=== PATIENT | female | born 1935 | race African-American/Black ===

== ENCOUNTER 2017-07-29 06:15 | Emergency (ER) | payer MEDICARE, OTHER ==
[~2017-07-29] VITALS: Ht 157.5 cm; Wt 59.0 kg
[2017-07-29] MEDS ORDERED: TRAMADOL 50MG TABLET PO ONE (06:45)
[2017-07-29] MEDS ORDERED: ACETAMINOPHEN 500MG TABLET PO ONE (06:45)
[2017-07-29 07:19] LABS: BASOPHILS % 0.4 % (0.0-2.0); EOSINOPHILS % 0.6 % (0.0-5.0); HEMATOCRIT. 29.3 % (36.0-48.0); HEMOGLOBIN. 10.1 g/dL (12.0-16.0); LYMPHOCYTES % 9.9 % (20.0-50.0); MEAN CORPUSCULAR HEMOGLOBIN 28.9 pg (28.0-32.0); MEAN CORPUSCULAR VOLUME 83.3 fL (81.0-99.0); MONOCYTES % 9.6 % (2.0-8.0); NEUTROPHILS % 79.5 % (40.0-76.0); PLATELET 285 x1000/uL (130-400); RED BLOOD CELL COUNT 3.52 mill/uL (4.2-5.4); RED CELL DISTRIBUTION WIDTH 17.3 % (11.6-14.6)
[2017-07-29 07:29] LABS: PROTHROMBIN TIME 49.7 sec (9.4-11.6)
[2017-07-29 07:36] LABS: INR 4.8
[2017-07-29 09:16] VITALS: BP 145/79
== END 2017-07-29 09:20 | disposition home or self-care (01) ==
LOC: ER 07:18
DX: M13.811 Other specified arthritis, right shoulder (principal); I50.9 Heart failure, unspecified; E78.00 Pure hypercholesterolemia, unspecified; I10 Essential (primary) hypertension; Z91.041 Radiographic dye allergy status; Z95.2 Presence of prosthetic heart valve
CPT/HCPCS: 36415; 71045; 73030; 83880; 85025; 85610; 93005; 99285

== ENCOUNTER 2020-02-21 12:42 | Inpatient (IN) | payer MEDICARE, OTHER ==
[~2020-02-21] VITALS: Ht 157.5 cm; Wt 51.3 kg
[2020-02-21] MEDS ORDERED: ONDANSETRON HCL 4MG/2ML INJ IV STA (13:57)
[2020-02-21] MEDS ORDERED: MORPHINE SULFATE 4 MG/ML CPJ (NOT FOR IM USE) IV STA (13:57)
[2020-02-21] MEDS ORDERED: SODIUM CHLORIDE 0.9% 1,000 ML IV ONE (14:00)
[2020-02-21 14:32] LABS: HEMATOCRIT. 31.3 % (36.0-48.0); HEMOGLOBIN. 10.5 g/dL (12.0-16.0); MEAN CORPUSCULAR HEMOGLOBIN 28.7 pg (28.0-32.0); MEAN CORPUSCULAR VOLUME 85.5 fL (81.0-99.0); MEAN PLATELET VOLUME 8.2 fl (7.4-10.4); PLATELET 357 x1000/uL (130-400); RED BLOOD CELL COUNT 3.66 mill/uL (4.2-5.4); RED CELL DISTRIBUTION WIDTH 15.5 % (11.6-14.6)
[2020-02-21 14:40] LABS: CHLORIDE 102 mEq/L (98-107)
[2020-02-21 15:32] LABS: PLATELET ESTIMATE NORMAL
[2020-02-21] MEDS ORDERED: ASPIRIN 325MG EC TABLET PO ONE (16:00)
[2020-02-21 16:50] LABS: INR 2.2; PARTIAL THROMBOPLASTIN TIME 34.5 sec (23.4-31.0); PROTHROMBIN TIME 22.6 sec (9.6-11.0)
[2020-02-21] MEDS ORDERED: ENOXAPARIN 40MG/0.4ML SYR SUBCUT SCH (18:15)
[2020-02-21] MEDS ORDERED: ACETAMINOPHEN 650MG SUPP PR PRN (18:15)
[2020-02-21] MEDS ORDERED: ONDANSETRON HCL 4MG/2ML INJ IV PRN (18:15)
[2020-02-21] MEDS ORDERED: HYDROMORPHONE HCL/PF 2MG/ML CPJ IV PRN (18:15)
[2020-02-21] MEDS: DEXT 5%/0.45% NACL 1000ML 1,000 ML IV SCH (18:51)
[2020-02-22 02:18] VITALS: BP 142/67
[2020-02-22] MEDS ORDERED: LOSA25TA3 PO (03:01)
[2020-02-22] MEDS ORDERED: ATOR20TA PO (03:01)
[2020-02-22] MEDS ORDERED: WARF-53 PO (03:01)
[2020-02-22] MEDS ORDERED: COR12 PO (03:01)
[2020-02-22 08:00] VITALS: BP 129/72
[2020-02-22] MEDS ORDERED: METOPROLOL TARTRATE 25MG TABLET PO SCH (09:00)
[2020-02-22] MEDS ORDERED: CARVEDILOL 12.5MG TABLET PO SCH (09:30)
[2020-02-22 11:05] LABS: HEMATOCRIT. 27.3 % (36.0-48.0); HEMOGLOBIN. 9.4 g/dL (12.0-16.0); MEAN CORPUSCULAR HEMOGLOBIN 29.4 pg (28.0-32.0); MEAN CORPUSCULAR VOLUME 85.6 fL (81.0-99.0); MEAN PLATELET VOLUME 7.9 fl (7.4-10.4); PLATELET 336 x1000/uL (130-400); RED BLOOD CELL COUNT 3.19 mill/uL (4.2-5.4); RED CELL DISTRIBUTION WIDTH 15.7 % (11.6-14.6)
[2020-02-22] MEDS ORDERED: ENOXAPARIN 40MG/0.4ML SYR SUBCUT SCH (11:30)
[2020-02-22 11:48] LABS: CHLORIDE 102 mEq/L (98-107)
[2020-02-22 12:00] VITALS: BP 125/71
[2020-02-22 12:02] LABS: HDL CHOLESTEROL 35 mg/dL (40-59); LDL CHOLESTEROL 50 mg/dL (5-100)
[2020-02-22 16:00] LABS: PLATELET ESTIMATE NORMAL
[2020-02-22 20:00] VITALS: BP 118/58
[2020-02-22] MEDS ORDERED: FUROSEMIDE 40MG/4ML VIAL IVP NR (20:00)
[2020-02-22] MEDS ORDERED: ATORVASTATIN CALCIUM 20MG TABLET PO SCH (21:00)
[2020-02-22] MEDS: ENOXAPARIN 60MG/0.6ML SYR SUBCUT SCH (22:04)
[2020-02-22] MEDS: ATORVASTATIN CALCIUM 40MG TABLET PO SCH (22:07)
[2020-02-23] VITALS: BP 107/54
[2020-02-23] MEDS ORDERED: PREDNISONE 20MG TABLET PO ONE ×2 (02:00→08:00)
[2020-02-23] MEDS: DEXT 5%/0.45% NACL 1000ML 1,000 ML IV SCH (02:31)
[2020-02-23 04:00] VITALS: BP 124/62
[2020-02-23] MEDS: LOSARTAN POTASSIUM 25 MG TABLET PO SCH (06:19)
[2020-02-23 08:00] VITALS: BP 124/65
[2020-02-23] MEDS ORDERED: DIPHENHYDRAMINE 50MG CAPSULE PO ONE (08:00)
[2020-02-23] MEDS: CARVEDILOL 12.5MG TABLET PO SCH (09:00)
[2020-02-23] MEDS: ENOXAPARIN 60MG/0.6ML SYR SUBCUT SCH ×2 (09:00→21:08)
[2020-02-23] MEDS ORDERED: HEPARIN SODIUM 1,000 UNIT/1ML VIAL IV ONE (11:00)
[2020-02-23 11:08] LABS: INR 1.9; PROTHROMBIN TIME 19.3 sec (9.6-11.0)
[2020-02-23 12:00] VITALS: BP 121/66
[2020-02-23] MEDS ORDERED: FENTANYL CITRATE/PF 50MCG/ML 2ML VIAL ONE (12:00)
[2020-02-23] MEDS ORDERED: MIDAZOLAM HCL 2 MG/2 ML VIAL ONE (12:00)
[2020-02-23] MEDS ORDERED: LIDOCAINE HCL 1% 20ML VIAL (Pyxis) INJ ONE (12:00)
[2020-02-23] MEDS ORDERED: IODIXANOL 320MG/ML 200ML BOTTLE ONE (12:01)
[2020-02-23] MEDS ORDERED: ALTEPLASE 2MG/VIAL ITC ONE (12:15)
[2020-02-23] MEDS ORDERED: IOHEXOL-300 100 ML BOTTLE ONE (13:14)
[2020-02-23] MEDS: CLOPIDOGREL 75MG TABLET PO SCH (15:51)
[2020-02-23 16:00] VITALS: BP 110/72
[2020-02-23 20:00] VITALS: BP 137/55
[2020-02-23] MEDS: ATORVASTATIN CALCIUM 40MG TABLET PO SCH (21:08)
[2020-02-24] VITALS: BP 127/69
[2020-02-24] MEDS: DEXT 5%/0.45% NACL 1000ML 1,000 ML IV SCH (00:19)
[2020-02-24 04:00] VITALS: BP 128/57
[2020-02-24] MEDS: LOSARTAN POTASSIUM 25 MG TABLET PO SCH (05:12)
[2020-02-24 08:00] VITALS: BP 135/67
[2020-02-24] MEDS: CARVEDILOL 12.5MG TABLET PO SCH (11:00)
[2020-02-24] MEDS: CLOPIDOGREL 75MG TABLET PO SCH (11:00)
[2020-02-24] MEDS: ENOXAPARIN 60MG/0.6ML SYR SUBCUT SCH ×2 (11:01→20:02)
[2020-02-24 11:45] VITALS: BP 100/58
[2020-02-24 13:02] LABS: INR 2.4; PROTHROMBIN TIME 24.1 sec (9.6-11.0)
[2020-02-24 16:00] VITALS: BP 114/61
[2020-02-24] MEDS ORDERED: WARFARIN SODIUM 2MG TABLET PO SCH (18:00)
[2020-02-24 20:00] VITALS: BP 112/55
[2020-02-24] MEDS: ATORVASTATIN CALCIUM 40MG TABLET PO SCH (20:01)
[2020-02-25] VITALS: BP 121/63
[2020-02-25] MEDS: DEXT 5%/0.45% NACL 1000ML 1,000 ML IV SCH (03:23)
[2020-02-25 04:00] VITALS: BP 124/57
[2020-02-25] MEDS: LOSARTAN POTASSIUM 25 MG TABLET PO SCH (05:14)
[2020-02-25 07:11] LABS: INR 2.2; PARTIAL THROMBOPLASTIN TIME 50.2 sec (23.4-31.0); PROTHROMBIN TIME 22.1 sec (9.6-11.0)
[2020-02-25 07:41] LABS: CHLORIDE 103 mEq/L (98-107)
[2020-02-25 07:52] LABS: HEMATOCRIT. 26.7 % (36.0-48.0); HEMOGLOBIN. 9.1 g/dL (12.0-16.0); MEAN CORPUSCULAR HEMOGLOBIN 28.8 pg (28.0-32.0); MEAN CORPUSCULAR VOLUME 84.8 fL (81.0-99.0); MEAN PLATELET VOLUME 7.7 fl (7.4-10.4); PLATELET 405 x1000/uL (130-400); RED BLOOD CELL COUNT 3.15 mill/uL (4.2-5.4); RED CELL DISTRIBUTION WIDTH 15.8 % (11.6-14.6)
[2020-02-25 08:00] VITALS: BP 111/57
[2020-02-25] MEDS: CLOPIDOGREL 75MG TABLET PO SCH (08:39)
[2020-02-25] MEDS: CARVEDILOL 12.5MG TABLET PO SCH (08:39)
[2020-02-25] MEDS: ENOXAPARIN 60MG/0.6ML SYR SUBCUT SCH (08:40)
[2020-02-25 11:59] VITALS: BP 110/58
[2020-02-25 12:35] VITALS: BP 110/58
[2020-02-25 13:21] LABS: PLATELET ESTIMATE SLIGHTLY INCREASED
[2020-02-25] MEDS ORDERED: WARFARIN SODIUM 3MG TABLET PO SCH (18:00)
== END 2020-02-25 15:30 | disposition home health service (06) | DRG 271 ==
LOC: ER 12:42 → 8WST 17:52 → ENRESERV 21:05 → CANRESERV 21:05 → ENRESERV 02-22
PROVIDERS: ADMIT Hospitalist; ATTEND Hospitalist
PROC: 04CP3ZZ Extirpation of Matter from Right Anterior Tibial Artery, Percutaneous Approach (ICD-10-PCS; principal; 2020-02-23)
PROC: 047P3ZZ Dilation of Right Anterior Tibial Artery, Percutaneous Approach (ICD-10-PCS; 2020-02-23)
PROC: 047V3ZZ Dilation of Right Foot Artery, Percutaneous Approach (ICD-10-PCS; 2020-02-23)
PROC: 04HK33Z Insertion of Infusion Device into Right Femoral Artery, Percutaneous Approach (ICD-10-PCS; 2020-02-23)
PROC: 04HP33Z Insertion of Infusion Device into Right Anterior Tibial Artery, Percutaneous Approach (ICD-10-PCS; 2020-02-23)
PROC: B51C1ZZ Fluoroscopy of Left Lower Extremity Veins using Low Osmolar Contrast (ICD-10-PCS; 2020-02-23)
PROC: 04HL33Z Insertion of Infusion Device into Left Femoral Artery, Percutaneous Approach (ICD-10-PCS; 2020-02-23)
PROC: B41G1ZZ Fluoroscopy of Left Lower Extremity Arteries using Low Osmolar Contrast (ICD-10-PCS; 2020-02-23)
PROC: B41F1ZZ Fluoroscopy of Right Lower Extremity Arteries using Low Osmolar Contrast (ICD-10-PCS; 2020-02-23)
DX: I73.9 Peripheral vascular disease, unspecified (principal); I48.20 Chronic atrial fibrillation, unspecified; I50.32 Chronic diastolic (congestive) heart failure; E44.1 Mild protein-calorie malnutrition; D63.8 Anemia in other chronic diseases classified elsewhere; E78.00 Pure hypercholesterolemia, unspecified; E78.5 Hyperlipidemia, unspecified; E83.52 Hypercalcemia; Z20.828 Contact with and (suspected) exposure to other viral communicable diseases; I11.0 Hypertensive heart disease with heart failure; Z95.2 Presence of prosthetic heart valve; Z68.20 Body mass index [BMI] 20.0-20.9, adult; Z88.8 Allergy status to other drugs, medicaments and biological substances; Z91.041 Radiographic dye allergy status; Z79.899 Other long term (current) drug therapy
CPT/HCPCS: 36415; 37224; 37229; 71045; 73600; 75710; 80053; 80061; 83880; 84484; 84550; 85025; 85347; 87426; 93005; 93306; 93923; 93970; 96374; 97116; 97162; 99285; C1725; C1760; C1769; C1885; C1887; C1893; C1894; J1644; J1650; J1940; J2250; J2270; J2405; J2997; J3010; J3490; J7030; J7512; Q0163; Q9967